=== PATIENT | male | born 1975 | race Caucasian/White ===

== ENCOUNTER 2025-06-06 05:55 | Day surgery (SDC) | payer MEDICARE, OTHER ==
[~2025-06-06] VITALS: Ht 182.9 cm; Wt 80.1 kg
[~2025-06-06 05:55] MED LIST: FAMOTIDINE40 MG/5 ML PO; LAMICTAL (ORAN1 EACH PO; METOCLOPRA10 MG/10 M PO; RANITIDINE15 MG/1 ML PO; VALPROIC A250 MG/5 M PO
[2025-06-06 06:35] VITALS: BP 145/94
[2025-06-06] MEDS ORDERED: LIDOCAINE HCL 4% 5 ML AMP ONE (07:25)
[2025-06-06] MEDS ORDERED: GLYCOPYRROLATE 1 MG/5 ML MDV ONE (07:29)
[2025-06-06] MEDS ORDERED: KETAMINE in NS 50 MG/5 ML SYR ONE (07:29)
[2025-06-06] MEDS ORDERED: LIDOCAINE 2% VISCOUS 11 ML SYR ONE (07:32)
[2025-06-06] MEDS ORDERED: SUCCINYLCHOLINE IN 0.9% NACL 200 MG/10 ML SYRINGE ONE (07:34)
[2025-06-06 08:02] LABS: BASOPHILS 0.6 % (0.2-1.2); EOSINOPHILS 3.3 % (0.8-7.0); LYMPHOCYTES 29.4 % (21.8-53.1); MCH 30.8 PG (25.7-32.2); MCHC 33.4 g/dL (32.3-36.5); MCV 92.3 fL (79.0-92.2); MONOCYTES 10.5 % (5.3-12.2); NEUTROPHILS 56.0 % (34.0-67.9); RBC 5.09 M/uL (4.63-6.08)
[2025-06-06] MEDS ORDERED: MIDAZOLAM HCL 2 MG/2 ML VIAL ONE (08:03)
[2025-06-06] MEDS ORDERED: DEXAMETHASONE SOD PHOS 4 MG/ML VIAL ONE (08:33)
[2025-06-06] MEDS ORDERED: ACETAMINOPHEN 1,000 MG/100 ML VIAL ONE (08:35)
[2025-06-06] MEDS ORDERED: KETOROLAC TROMETHAMINE 30 MG/ML VIAL ONE (08:35)
[2025-06-06] MEDS ORDERED: OXYMETAZOLINE HCL 30 ML BTL ONE (08:45)
[2025-06-06] MEDS ORDERED: TRANEXAMIC ACID 1,000 MG/10 ML AMP ONE (09:06)
[2025-06-06] MEDS ORDERED: NALOXONE HCL 0.4 MG SYR IV PRN (09:45)
[2025-06-06] MEDS ORDERED: fentaNYL citrate 50 MCG/ML SDV IV PRN (09:45)
[2025-06-06] MEDS ORDERED: MIDAZOLAM HCL 2 MG/2 ML VIAL IV PRN (09:45)
[2025-06-06] MEDS ORDERED: PROCHLORPERAZINE EDISYLATE 10 MG/2 ML VIAL IV PRN (09:45)
[2025-06-06 09:59] VITALS: BP 109/63
[2025-06-06 11:07] VITALS: BP 119/76
== END 2025-06-06 11:15 | disposition home or self-care (01) ==
LOC: OPS 05:55 → DS 05:55 → OPS 07:00 → DS 09:30 → OPS 09:30
PROVIDERS: ATTEND Dentist General Practice
PROC: 0CQWXZ1 Repair of Upper Tooth, Multiple, External Approach (ICD-10-PCS; 2025-06-06)
PROC: 0CQXXZ1 Repair of Lower Tooth, Multiple, External Approach (ICD-10-PCS; principal; 2025-06-06 07:00)
DX: K05.6 Periodontal disease, unspecified (principal)
CPT/HCPCS: 00170; 36415; 85025; J0131; J0330; J1100; J1885; J2250; J2704; J3490